=== PATIENT | male | born 1995 | race Caucasian/White ===

== ENCOUNTER 2018-11-16 19:05 | Emergency (ER) | payer OTHER ==
--- NOTE | 2018-11-16 20:34 | ED ---
Recheck HPI - General Chief Complaint: Wound/Laceration Stated Complaint: [facility]-Cut finger - History of Present Illness Initial Comments: 23-year-old male presenting for right thumb pain. Patient states using knife at work yesterday. Patient states he slightly cut his finger. Patient states he did not want to present for evaluation. Patient states it was painful today while sweaty and gloves. Patient presented for evaluation. Patient states tetanus is up-to-date within the last 5 years. Patient states he usually is on tramadol was requesting a refill while he is in the emergency department. Patient has no other complaints denies any limitation to range of motion redness swelling of the finger. Remaining review of systems negative - Related Data Home Medications Medication Instructions Recorded Confirmed Fluticasone Nasal [place] [Flonase 1 spray EA NOSTRIL DAILY 11/16/18 11/16/18 Nasal [place]] Allergies Allergy/AdvReac Type Severity Reaction Status Date / Time No Known Allergies Allergy Verified 11/16/18 20:39 Review of Systems ROS Statement: Those systems with pertinent positive or pertinent negative responses have been documented in the HPI. ROS Other: All systems not noted in ROS Statement are negative. General Exam - General Exam Comments Initial Comments: General: The patient is awake and alert, in no distress, and does not appear acutely ill. Eye: Pupils are equal, round and reactive to light, extra-ocular movements are intact. No nystagmus. There is normal conjunctiva bilaterally. No signs of icterus. Cardiovascular: There is a regular rate and rhythm. No murmur, rub or gallop is appreciated. Respiratory: Lungs are clear to auscultation, respirations are non-labored, breath sounds are equal. No wheezes, stridor, rales, or rhonchi. Musculoskeletal: Upon inspection of the right thumb there is a very superficial laceration more so abrasion at the distal aspect involving the tip of the nail no evidence of nail bed laceration. No active bleeding. No surrounding erythema. No swelling of the digits. Normal ROM, no tenderness. Strength 5/5 MTP DIP and PIP joints. Sensation intact both proximal and distal to injury site. Radial pulses equal bilaterally 2+. Neurological: A&O x 3. CN II-XII intact, There are no obvious motor or sensory deficits. Coordination appears grossly intact. Speech is normal. Skin: Skin is warm and dry and no rashes or lesions are noted. Psychiatric: Cooperative, appropriate mood & affect, normal judgment. Course Vital Signs 11/16/18 20:36 Temperature 98.1 F Pulse Rate 72 Respiratory 18 Rate Blood Pressure 113/72 O2 Sat by Pulse 99 Oximetry Medical Decision Making - Medical Decision Making 23-year-old presenting for superficial laceration. Laceration bleeding controlled. Area cleansed. Tetanus up-to-date. No evidence indicated on physical examination for suture repair. Very superficial. No concern for deeper underlying injury. Vision or vascular intact. No evidence of infection. Patient requesting refill of tramadol. At this time feel patient should receive medication refills from primary care provider. Return parameters and sent infections were discussed with patient. Patient was educated on the local topical treatment and care for superficial abrasions/lacerations. Patient verbalized understanding. Patient discharged appearing well Disposition Clinical Impression: Superficial laceration Disposition: HOME SELF-CARE Condition: Good Instructions (If sedation given, give patient instructions): Laceration (ED) Additional Instructions: Please use topical medication as discussed. Please follow-up with family doctor in the next 2 days. Please return to emergency room if the symptoms increase or worsen or for any other concerns--redness, increasing pain, drainage, abscess. Is patient prescribed a controlled substance at d/c from ED?: No Referrals: Joel Cowart MD [Primary Care Provider] - 1-2 days Time of Disposition: 20:33
[2018-11-16 20:39] VITALS: BP 113/72; PULSE 72; RESP 18; TEMP 98.1
== END 2018-11-16 20:51 | disposition home or self-care (01) ==
LOC: EC 19:05
DX: S61.011A Laceration without foreign body of right thumb without damage to nail, initial encounter (principal); F17.200 Nicotine dependence, unspecified, uncomplicated; W26.0XXA Contact with knife, initial encounter; Y92.69 Other specified industrial and construction area as the place of occurrence of the external cause; Y99.0 Civilian activity done for income or pay
CPT/HCPCS: 99282

== ENCOUNTER 2019-10-13 16:38 | Inpatient (IN) | payer MEDICAID, OTHER ==
--- NOTE | 2019-10-13 18:38 | ED ---
Psych HPI - General Chief Complaint: Psychiatric Symptoms Stated Complaint: EPS eval Time Seen by Provider: 10/13/19 17:05 Source: patient Mode of arrival: ambulatory - History of Present Illness Initial Comments: 24 year-old male patient presents to the emergency department today for psychiatric evaluation. Patient states that a little over a week ago he overdosed on his gabapentin, states he took 27 pills. States he is going to a crisis and felt like he wanted to . States that he relapsed on heroin after 3 years and broke up with his girlfriend which made him very upset. Patient states he continued to use heroin which is making him scared for his life. States he is having difficulty sleeping. He is eating and drinking. Patient denies any current suicidal ideation. States he feels well physically. He states he has had a psychiatric medications in the last 6 months. He has been diagnosed with bipolar and depression in the past. Patient denies any recent rash, fever, chills, cough, shortness of breath, chest pain, abdominal pain, nausea, vomiting, diarrhea, constipation, back pain, numbness, tingling, dizziness, weakness, hematuria, dysuria, urinary urgency, urinary frequency, headache, visual changes, or any other complaints. - Related Data Home Medications Medication Instructions Recorded Confirmed Gabapentin [Neurontin] 400 mg PO TID 10/13/19 10/13/19 Allergies Allergy/AdvReac Type Severity Reaction Status Date / Time No Known Allergies Allergy Verified 10/13/19 18:08 Review of Systems ROS Statement: Those systems with pertinent positive or pertinent negative responses have been documented in the HPI. ROS Other: All systems not noted in ROS Statement are negative. Past Medical History Additional Past Medical History / Comment(s): Hep C, pancreatitis History of Any Multi-Drug Resistant Organisms: None Reported Past Surgical History: No Surgical Hx Reported Past Psychological History: No Psychological Hx Reported, Bipolar, Depression Smoking Status: Current every day smoker Past Alcohol Use History: Rare Past Drug Use History: Marijuana, Opiates General Exam Limitations: no limitations General appearance: alert, in no apparent distress, other (This is a well- developed, well-nourished adult male patient in no acute distress. Vital signs upon presentation are temperature 98.0F, pulse 99, respirations 18, blood pressure 119/79, pulse ox 98% on room air) Eye exam: Present: normal appearance, PERRL, EOMI. Absent: scleral icterus, conjunctival injection, periorbital swelling ENT exam: Present: normal exam, normal oropharynx, mucous membranes moist Respiratory exam: Present: normal lung sounds bilaterally. Absent: respiratory distress, wheezes, rales, rhonchi, stridor Cardiovascular Exam: Present: regular rate, normal rhythm, normal heart sounds. Absent: systolic murmur, diastolic murmur, rubs, gallop, clicks GI/Abdominal exam: Present: soft, normal bowel sounds. Absent: distended, tenderness, guarding, rebound, rigid Neurological exam: Present: alert, oriented X3, CN II-XII intact Psychiatric exam: Present: normal affect, normal mood Skin exam: Present: warm, dry, intact, normal color. Absent: rash Course Vital Signs 10/13/19 10/14/19 16:42 00:15 Temperature 98 F 97.7 F Pulse Rate 99 71 Respiratory 18 18 Rate Blood Pressure 119/79 129/79 O2 Sat by Pulse 98 97 Oximetry Medical Decision Making - Medical Decision Making 24 year-old male patient presented to the emergency department today for evaluation of increased depression and increased drug use. Physical examination is unremarkable. He was cleared medically and evaluated by emergency psychiatric services. It is felt he would benefit from inpatient admission. He will be transported to the mental health unit. - Lab Data Result diagrams: 10/13/19 20:14 10/13/19 20:14 Lab Results 10/13/19 10/13/19 10/13/19 Range/Units 18:24 18:24 20:14 WBC 7.1 (3.8-10.6) k/uL RBC 4.28 L (4.30-5.90) m/uL Hgb 14.9 (13.0-17.5) gm/dL Hct 42.1 (39.0-53.0) % MCV 98.5 (80.0-100.0) fL MCH 34.7 (25.0-35.0) pg MCHC 35.3 (31.0-37.0) g/dL RDW 12.0 (11.5-15.5) % Plt Count 278 (150-450) k/uL Neutrophils % 60 % Lymphocytes % 26 % Monocytes % 9 % Eosinophils % 2 % Basophils % 0 % Neutrophils # 4.2 (1.3-7.7) k/uL Lymphocytes # 1.8 (1.0-4.8) k/uL Monocytes # 0.6 (0-1.0) k/uL Eosinophils # 0.1 (0-0.7) k/uL Basophils # 0.0 (0-0.2) k/uL Sodium (137-145) mmol/L Potassium (3.5-5.1) mmol/L Chloride (98-107) mmol/L Carbon Dioxide (22-30) mmol/L Anion Gap mmol/L BUN (9-20) mg/dL Creatinine (0.66-1.25) mg/dL Est GFR (CKD-EPI)AfAm (>60 ml/min/1.73 sqM) Est GFR (CKD-EPI)NonAf (>60 ml/min/1.73 sqM) Glucose (74-99) mg/dL Calcium (8.4-10.2) mg/dL Total Bilirubin (0.2-1.3) mg/dL AST (17-59) U/L ALT (4-49) U/L Alkaline Phosphatase (38-126) U/L Total Protein (6.3-8.2) g/dL Albumin (3.5-5.0) g/dL Urine Color Yellow Urine Appearance Clear (Clear) Urine pH 6.5 (5.0-8.0) Ur Specific [place] 1.010 (1.001-1.035) Urine Protein Negative (Negative) Urine Glucose (UA) Negative (Negative) Urine Ketones Negative (Negative) Urine Blood Negative (Negative) Urine Nitrite Negative (Negative) Urine Bilirubin Negative (Negative) Urine Urobilinogen <2.0 (<2.0) mg/dL Ur Leukocyte Esterase Negative (Negative) Urine Opiates Screen Not Detected (NotDetected) Ur Oxycodone Screen Not Detected (NotDetected) Urine Methadone Screen Not Detected (NotDetected) Ur Propoxyphene Screen Not Detected (NotDetected) Ur Barbiturates Screen Not Detected (NotDetected) U Tricyclic Antidepress Not Detected (NotDetected) Ur Phencyclidine Scrn Not Detected (NotDetected) Ur Amphetamines Screen Detected H (NotDetected) U Methamphetamines Scrn Detected H (NotDetected) U Benzodiazepines Scrn Not Detected (NotDetected) Urine Cocaine Screen Not Detected (NotDetected) U Marijuana (THC) Screen Detected H (NotDetected) 10/13/19 Range/Units 20:14 WBC (3.8-10.6) k/uL RBC (4.30-5.90) m/uL Hgb (13.0-17.5) gm/dL Hct (39.0-53.0) % MCV (80.0-100.0) fL MCH (25.0-35.0) pg MCHC (31.0-37.0) g/dL RDW (11.5-15.5) % Plt Count (150-450) k/uL Neutrophils % % Lymphocytes % % Monocytes % % Eosinophils % % Basophils % % Neutrophils # (1.3-7.7) k/uL Lymphocytes # (1.0-4.8) k/uL Monocytes # (0-1.0) k/uL Eosinophils # (0-0.7) k/uL Basophils # (0-0.2) k/uL Sodium 136 L (137-145) mmol/L Potassium 3.8 (3.5-5.1) mmol/L Chloride 99 (98-107) mmol/L Carbon Dioxide 29 (22-30) mmol/L Anion Gap 8 mmol/L BUN 13 (9-20) mg/dL Creatinine 0.63 L (0.66-1.25) mg/dL Est GFR (CKD-EPI)AfAm >90 (>60 ml/min/1.73 sqM) Est GFR (CKD-EPI)NonAf >90 (>60 ml/min/1.73 sqM) Glucose 98 (74-99) mg/dL Calcium 9.8 (8.4-10.2) mg/dL Total Bilirubin 0.6 (0.2-1.3) mg/dL AST 36 (17-59) U/L ALT 18 (4-49) U/L Alkaline Phosphatase 75 (38-126) U/L Total Protein 7.5 (6.3-8.2) g/dL Albumin 4.5 (3.5-5.0) g/dL Urine Color Urine Appearance (Clear) Urine pH (5.0-8.0) Ur Specific [place] (1.001-1.035) Urine Protein (Negative) Urine Glucose (UA) (Negative) Urine Ketones (Negative) Urine Blood (Negative) Urine Nitrite (Negative) Urine Bilirubin (Negative) Urine Urobilinogen (<2.0) mg/dL Ur Leukocyte Esterase (Negative) Urine Opiates Screen (NotDetected) Ur Oxycodone Screen (NotDetected) Urine Methadone Screen (NotDetected) Ur Propoxyphene Screen (NotDetected) Ur Barbiturates Screen (NotDetected) U Tricyclic Antidepress (NotDetected) Ur Phencyclidine Scrn (NotDetected) Ur Amphetamines Screen (NotDetected) U Methamphetamines Scrn (NotDetected) U Benzodiazepines Scrn (NotDetected) Urine Cocaine Screen (NotDetected) U Marijuana (THC) Screen (NotDetected) Disposition Clinical Impression: Depression Disposition: ADMITTED IP TO THIS [facility] Condition: Serious Decision to Admit Reason: Admit from EC Decision Date: 10/13/19 Decision Time: 22:49
[2019-10-13 18:43] LABS: Amphetamine Screen,Urine Detected (NotDetected); Barbiturate Screen,Urine Not Detected (NotDetected); Benzodiazepines Screen,Urine Not Detected (NotDetected); Cocaine Screen,Urine Not Detected (NotDetected); Methadone Screen, Urine Not Detected (NotDetected); Opiate Screen,Urine Not Detected (NotDetected); Oxycodone Screen, Urine Not Detected (NotDetected); Phencyclidine Screen,Urine Not Detected (NotDetected); Tricyclic Antidepressant,Urine Not Detected (NotDetected); Urn Cannabinoid Scrn Detected (NotDetected)
[2019-10-13 20:24] LABS: Appearance,Urine Clear (Clear); Bilirubin,Urine Negative (Negative); Blood,Urine Negative (Negative); Color,Urine Yellow; Glucose,Urine (UA) Negative (Negative); Ketones,Urine Negative (Negative); Leukocyte Esterase,Urine Negative (Negative); Nitrite,Urine Negative (Negative); PH, Urine 6.5 (5.0-8.0); Protein,Urine Negative (Negative); Urobilinogen,Urine <2.0 mg/dL (<2.0)
[2019-10-13 20:30] LABS: ALT 18 U/L (4-49); AST 36 U/L (17-59); African American GFR (CKD) >90 (>60 ml/min/1.73 sqM); Albumin 4.5 g/dL (3.5-5.0); Alkaline Phosphatase 75 U/L (38-126); Anion Gap 8 mmol/L; Blood Urea Nitrogen 13 mg/dL (9-20); Calcium 9.8 mg/dL (8.4-10.2); Carbon Dioxide 29 mmol/L (22-30); Chloride 99 mmol/L (98-107); Glucose 98 mg/dL (74-99); Non-African American GFR(CKD) >90 (>60 ml/min/1.73 sqM); Potassium 3.8 mmol/L (3.5-5.1); Sodium 136 mmol/L (137-145); Total Bilirubin 0.6 mg/dL (0.2-1.3); Total Protein 7.5 g/dL (6.3-8.2)
[2019-10-13 20:39] LABS: Basophils % (A) 0 %; Eosinophils # (A) 0.1 k/uL (0-0.7); Eosinophils % (A) 2 %; HCT 42.1 % (39.0-53.0); HGB 14.9 gm/dL (13.0-17.5); Lymphocytes # (A) 1.8 k/uL (1.0-4.8); Lymphocytes % (A) 26 %; MCH 34.7 pg (25.0-35.0); MCHC 35.3 g/dL (31.0-37.0); MCV 98.5 fL (80.0-100.0); Mean Platelet Volume 7.4; Monocytes # (A) 0.6 k/uL (0-1.0); Monocytes % (A) 9 %; Neutrophils # (A) 4.2 k/uL (1.3-7.7); Neutrophils % (A) 60 %; Platelet Count 278 k/uL (150-450); RBC 4.28 m/uL (4.30-5.90); WBC 7.1 k/uL (3.8-10.6)
[2019-10-14] MEDS ORDERED: MAG HYDROX/AL HYDROX/SIMETH 30 ML CUP PO PRN (00:07)
[2019-10-14] MEDS ORDERED: LORazepam 0.5 MG TAB PO PRN (00:07)
[2019-10-14] MEDS ORDERED: ACETAMINOPHEN TAB 325 MG TAB PO PRN (00:07)
[2019-10-14] MEDS ORDERED: MAGNESIUM HYDROXIDE 2,400 MG/10 ML CUP PO PRN (00:07)
[2019-10-14] MEDS ORDERED: NICOTINE POLACRILEX 2 MG GUM BUCCAL PRN (03:16)
[2019-10-14 09:28] LABS: Albumin 4.5 g/dL (3.5-5.0); Bilirubin,Unconjugated 0.7 mg/dL (0.0-1.1); Total Bilirubin 0.7 mg/dL (0.2-1.3); Total Protein 7.5 g/dL (6.3-8.2)
[2019-10-14] MEDS: GABAPENTIN 400 MG CAP PO SCH ×3 (09:56→20:57)
[2019-10-14] MEDS ORDERED: ZIPRASIDONE 20 MG VIAL IM PRN (10:39)
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
[2019-10-14] MEDS: lamoTRIgine 25 MG TAB PO SCH ×2 (12:23→20:57)
[2019-10-14 18:54] LABS: Hemoglobin A1C 5.4 % (4.0-6.0)
[2019-10-14] MEDS ORDERED: QUEtiapine 50 MG TAB PO SCH (21:00)
--- NOTE | 2019-10-15 04:21 | P.CONS ---
History of Present Illness - Reason for Consult Consult date: 10/15/19 - History of Present Illness 24-year-old male with a PMH of hepatitis C and history of pancreatitis and presented to the ED with complaints of depression and suicidal ideation. The patient was admitted to the mental health unit where he was seen and evaluated. The patient reported feeling somewhat better since admission, though reported continued feelings of depression due to his ongoing substance abuse issues. The patient otherwise denied chest pain, shortness of fever, chills, nausea, vomiting, or abdominal pain. Review of Systems Pertinent positives and negatives as discussed in HPI, a complete review of systems was performed and all other systems are negative. Past Medical History Additional Past Medical History / Comment(s): Hep C, pancreatitis History of Any Multi-Drug Resistant Organisms: None Reported Past Surgical History: No Surgical Hx Reported Past Psychological History: No Psychological Hx Reported, Bipolar, Depression Smoking Status: Current every day smoker Past Alcohol Use History: Rare Past Drug Use History: Marijuana, Opiates Medications and Allergies Home Medications Medication Instructions Recorded Confirmed Type Gabapentin [Neurontin] 400 mg PO TID 10/13/19 10/13/19 History Allergies Allergy/AdvReac Type Severity Reaction Status Date / Time No Known Allergies Allergy Verified 10/13/19 18:08 Physical Exam Vitals: Vital Signs Temp Pulse Pulse Resp BP BP Pulse Ox 10/14/19 20:59 101 H 112/72 10/14/19 17:29 97.1 F L 10/14/19 14:26 99.1 F 10/14/19 06:46 98.8 F 62 16 131/59 98 General: non toxic, no distress, appears at stated age, normal weight Derm: no unusual rashes/lesions no unusual ecchymoses, warm, dry Head: atraumatic, normocephalic, symmetric Eyes: EOMI, no lid lag, anicteric sclera, pupils equal round reactive to light ENT: Nose and ears atraumatic, no thrush, no pharyngeal erythema Neck: No thyromegaly, no cervical lymphadenopathy, trachea midline, supple Mouth: no lip lesion, mucus membranes moist Cardiovascular: S1S2 reg, no murmur, positive posterior tibial pulse bilateral, no edema, capillary refill less than 2 seconds Lungs: CTA bilateral, no rhonchi, no rales , no accessory muscle use Abdominal: soft, nontender to palpation, no guarding, no appreciable organomegaly, normal bowel sounds Ext: no gross muscle atrophy, muscle strength 5 out of 5 in all 4 extremities grossly, no contractures, Neuro: CN II-XI grossly intact, light touch intact all 4 extremities, finger to nose within normal limits, Psych: Alert, oriented, appropriate affect Results CBC & Chem 7: 10/13/19 20:14 10/13/19 20:14 Labs: Abnormal Lab Results - Last 24 Hours (Table) 10/14/19 Range/Units 08:40 TSH 0.125 L (0.465-4.680) mIU/L Assessment and Plan Plan: Low TSH -Follow-up free T4 Tobacco abuse -Nicotine patch History of hepatitis C -Patient will need outpatient GI follow-up next Polysubstance abuse -Monitor for signs of withdrawal Depression and suicidal ideation -As per psych
--- NOTE | 2019-10-15 10:21 | P.PN ---
Progress Note - Text Progress Note Date: 10/15/19 Interval History: Patient was seen laying down in his bed this morning and was directable and ag reeable to speak with policy writer sales in the office. Patient was initially hesitant to get out of bed. He states that he feels anxious and continues to feel depressed. He states that he is still going through withdrawals from the substance abuse. He states that "I'm not eating" and states that he does not like eating in a dining garcia with other people as he claims that it is due to his anxiety and PTSD. He states that he slept about "half the night". He claims that he is not going to any groups at this time and has not been very visible on the unit and states that "I'm just not a social person". At this time patient denies any suicidal or homical ideations, intent or plan. Patient denies any auditory, visual hallucinations and denies any paranoia or delusions. Patient denies any side effects from the medications and has been compliant with meds. Mental Status Exam: General Appearance: Patient appears to be stated age is tall, thin alert, directable, and argumentative at times. Patient appears to have poor hygiene and grooming Behavior: Patient is seated without any agitated behavior. Commended at times. Speech: Patient's speech is fluent and nonpressured. Mood/Affect: Patient reports their mood is "terrible", affect is congruent and constricted. Some irritability. Suicidality/Homicidality: Patient denies having any homicidal ideation intent or plan. Denies any suicidal ideations intent or plan Perceptions: Patient denies any visual hallucinations and denies any auditory hallucinations Though content/process: There is no evidence of any delusional thought content and thought process is linear and goal-directed. Depressive thoughts. Memory and concentration: AOX3, grossly intact for the purposes of this session Judgment and insight: poor Assessment Bipolar disorder, currently depressed rule out substance-induced depressive disorder History of PTSD. Opiate abuse Methamphetamine abuse Cannabis use disorder Nicotine dependence Plan: -Patient continues to meet criteria for inpatient psychiatric admission for symptom stabilization and safety. Patient has signed adult voluntary form and medication consent and was placed in patient's chart. -Medications: Will increase Lamictal to 50 mg twice a day for mood stabilization/depression. Increased Seroquel to 75 mg nightly for mood stabilization/insomnia. -When necessary Ativan and Geodon for agitation/aggression. -NRT -nicotine gum -SW on board for discharge planning. Encouraged the patient to participate in milieu. Patient stated that he does not want to go to rehab at this time. Likely discharge in 2-3 days.
[2019-10-15] MEDS: GABAPENTIN 400 MG CAP PO SCH ×3 (10:26→20:21)
[2019-10-15] MEDS: lamoTRIgine 25 MG TAB PO SCH (10:27)
[2019-10-15] MEDS ORDERED: lamoTRIgine 25 MG TAB PO SCH (21:00)
[2019-10-15] MEDS ORDERED: QUEtiapine 25 MG TAB PO SCH (21:00)
[2019-10-16 05:30] VITALS: RESP 18
[2019-10-16] MEDS: busPIRone HCl 10 MG TAB PO SCH (08:41)
[2019-10-16] MEDS: GABAPENTIN 400 MG CAP PO SCH ×3 (08:41→20:06)
--- NOTE | 2019-10-16 08:42 | P.PN ---
Progress Note - Text Progress Note Date: 10/16/19 Interval History: Patient was seen laying down in his bed this morning and was directable and ag reeable to speak with flex o writer operator in the office. Patient appeared to be more cooperative today with brighter and more appropriate. He states that his mood has been gradually improving and he feels less depressed today. He states that he continues to struggle with anxiety however did state that he was able to go into the dining garcia earlier this morning and have "a few bites of breakfast" before he left due to anxiety. He states that he refused the Lamictal yesterday as he states that it was "making me feel more anxious" however does state that the Seroquel is helping him. He states that he only slept 3-4 hours last night and was requesting to have his Seroquel increased to 150 mg for tonight. He did claim that he will try to go to groups today as he is feeling too anxious yesterday. At this time patient denies any suicidal or homical ideations, intent or plan. Patient denies any auditory, visual hallucinations and denies any paranoia or delusions. Patient has been compliant with meds. Mental Status Exam: General Appearance: Patient appears to be stated age is tall, thin alert, directable, and more cooperative today. Patient appears to have improved hygiene and grooming Behavior: Patient is seated without any agitated behavior. Attempts to cooperate today. Speech: Patient's speech is fluent and nonpressured. Mood/Affect: Patient reports their mood is "a bit better", affect is congruent and constricted. Anxious. Suicidality/Homicidality: Patient denies having any homicidal ideation intent or plan. Denies any suicidal ideations intent or plan Perceptions: Patient denies any visual hallucinations and denies any auditory hallucinations Though content/process: There is no evidence of any delusional thought content and thought process is linear and goal-directed. More future oriented. Memory and concentration: AOX3, grossly intact for the purposes of this session Judgment and insight: poor, only improving. Assessment Bipolar disorder, currently depressed rule out substance-induced depressive disorder History of PTSD. Opiate abuse Methamphetamine abuse Cannabis use disorder Nicotine dependence Plan: -Patient continues to meet criteria for inpatient psychiatric admission for symptom stabilization and safety. Patient has signed adult voluntary form and medication consent and was placed in patient's chart. -Medications: Will discontinue Lamictal at this time as it may have been causing patient to be more anxious. Increased Seroquel to 150 mg nightly for mood stabilization/insomnia. We will add BuSpar 10 mg at 9 AM +10 mg at 2 PM for anxiety. -When necessary Ativan and Geodon for agitation/aggression. -NRT -nicotine gum -SW on board for discharge planning. Encouraged the patient to participate in milieu. Patient stated that he is continuing to consider rehab. Likely discharge in 1-2 days.
[2019-10-16] MEDS ORDERED: busPIRone HCl 10 MG TAB PO SCH (14:00)
[2019-10-16 20:09] VITALS: BP 115/74; PULSE 88
[2019-10-16] MEDS ORDERED: QUEtiapine 50 MG TAB PO SCH (21:00)
[2019-10-17] MEDS: busPIRone HCl 10 MG TAB PO SCH (07:53)
[2019-10-17] MEDS: GABAPENTIN 400 MG CAP PO SCH (07:53)
--- NOTE | 2019-10-17 09:37 | P.DS ---
Providers Date of admission: 10/14/19 00:02 Expected date of discharge: 10/17/19 Attending physician: Cas Goyal MD Primary care physician: Keven Reddy - Discharge Diagnosis(es) (1) Bipolar disorder current episode depressed Current Visit: Yes Status: Acute Priority: High (2) History of posttraumatic stress disorder (PTSD) Current Visit: Yes Status: Acute Priority: Medium (3) Opiate abuse, episodic Current Visit: Yes Status: Acute Priority: Medium (4) Methamphetamine abuse Current Visit: Yes Status: Acute Priority: Medium (5) Cannabis use disorder, mild, abuse Current Visit: Yes Status: Acute Priority: Medium (6) Nicotine dependence Current Visit: Yes Status: Acute Priority: Low Hospital Course: Admission HPI: Patient is a 24 year old male currently lives with his mother has no kids is single and unemployed. Patient presented to the hospital yesterday for psychiatric evaluation and claimed that he overdosed on Neurontin approximately 1 week ago on 27 pills as per ER report patient also explained in the ER that he was feeling suicidal and relapse on heroin after being sober for 3 years and having argument with his girlfriend. Patient's UDS is positive for methamphetamine and marijuana. Patient was admitted to the mental health unit and evaluated this morning by sports book writer. Patient was initially guarded and evasive and spoke generally about having "drug use problems and mental health issues" as for the reason why he is in the hospital. He states that he also has bipolar and "sleep problems". He did describe a vague history of what appeared to be a manic episode where he would have lots of energy and did not need any sleep and was not using drugs at that time. He describes his mood currently as "horrible" and described no triggers or stressors in his life recently. He states that he relapsed back on heroin and fentanyl approximately 2 weeks ago and has been using attendance of a gram every day. He denies any methamphetamine use but does claim that he uses marijuana daily for anxiety sleep and appetite. He states that the reason why he relapsed on drugs was that he "seen someone at the [employer] who was selling drugs and claims that "I had a bad day that day and wanted a stress relief". He claims that he's been off his psychiatric medications including Prozac and Zyprexa as he claims it has not helped him for the past 3 months. He admitted to a overdose on Neurontin 1 week ago consuming 27 pills however did not go to the hospital. He states that his sleep is "all right".Patient denies any suicidal or homicidal ideations intent or plan. At this time patient denies any auditory or visual hallucinations. Patient denies any flight of ideas racing thoughts and increased in goal directed behavior. Patient admits to using cigarettes daily denies any alcohol use and recreational drugs as listed above. Hospital course: Upon admission to the unit patient was initially depressed and anxious and having suicidal thoughts. Patient was however directable and agreeable to commence treatment. Patient got along well with other patients on the unit and followed unit protocol. Patient was compliant with the medications throughout hospital course. Patient was started on Lamictal initially however patient reported significant increase in his anxiety and it was discontinued. Patient was started on Seroquel and titrated up to a dose of 150 mg nightly for mood stabilization/insomnia. Patient was also started on BuSpar 10 mg every 9 AM +10 mg every 2 p.m. for anxiety.. Patient spoke of his stressors and engaged in individual therapy however did not attend many groups. Patient for the most part was minimally visible on the unit and mainly isolative in his room and stated that that is how he usually is and usually avoids people. Patient was also seen by medical team for history and physical exam. Throughout the course of the hospitalization patient gradually improved with regards to mood, anxiety, sleep and became future oriented with improved insight and judgment. On the day of discharge patient denied any suicidal or homicidal ideations intent or plan denied any auditory or visual hallucinations. Patient endorsed wanting to live for his future and his family. The patient denied any access to guns or weapons. Patient denied any paranoia and did not endorse any delusions. Patient does have a significant history of substance abuse and was counseled on abstaining from all substances including alcohol and marijuana. Patient was offered however declined inpatient substance-abuse rehab and instead patient claims that he would like to go to [facility] for outpatient substance use treatment. Patient was also counseled on the medications and need for regular compliance and was encouraged to follow-up with their outpatient appointment for mental health and also for primary care. Prior to discharge a family meeting will be arranged by older adult social work specialist to answer any questions and ensure safety upon discharge. Mental status exam: General Appearance: Patient appears to be tall/thin, stated age is alert, pleasant, and cooperative. Patient is in no acute distress and has fair hygiene and grooming Behavior: Patient is calmly seated without any agitated behavior. Cooperative. Speech: Patient's speech is fluent and nonpressured. Mood/Affect: Patient reports their mood is "much better", affect is congruent and euthymic. Suicidality/Homicidality: Patient denies having any suicidal or homicidal ideation intent or plan. Perceptions: Patient denies any auditory or visual hallucinations. Though content/process: There is no evidence of any delusional thought content and thought process is linear and goal-directed. more future oriented Memory and concentration: AOX3, grossly intact for the purposes of this session. Can spell "WORLD" backwards correctly. Judgment and insight: Improved with guarded prognosis Impression: Bipolar disorder, currently depressed rule out substance-induced mood disorder. History of PTSD Opiate abuse Methamphetamine abuse Cannabis use disorder Nicotine dependence Plan: -Continue with discharge today as patient has improved and stabilized psychiatrically and is not currently an imminent threat to himself and/or others. -Continue medications: Seroquel 150 mg nightly for mood stabilization/insomnia, BuSpar 10 mg every 9 AM +10 mg every 2 PM for anxiety. -Patient was counseled on the need for medication compliance and appropriate follow-up at mental health and also primary care for medical issues. Patient verbalized understanding and agreed. -Social work to arrange for and conduct family meeting to ensure safety upon discharge and answer any questions/concerns. Social work also to arrange for patients follow up appointments with [facility] for psychiatric care along with follow up with primary care provider. Patient will also be going to [facility] for outpatient substance abuse treatment. -Patient counseled on abstaining from recreational drugs and marijuana and alcohol. Was informed/educated on the adverse effects on their physical and mental health. Patient verbally agreed and understood. Patient was offered substance abuse treatment however declined at this time. -Patient was instructed to return to the hospital or seek immediate medical care if their psychiatric or medical symptoms do worsen or reoccur. Allergies Allergy/AdvReac Type Severity Reaction Status Date / Time No Known Allergies Allergy Verified 10/13/19 18:08 Laboratory Results WBC 7.1 k/uL (3.8-10.6) 10/13/19 20:14 RBC 4.28 m/uL (4.30-5.90) L 10/13/19 20:14 Hgb 14.9 gm/dL (13.0-17.5) 10/13/19 20:14 Hct 42.1 % (39.0-53.0) 10/13/19 20:14 MCV 98.5 fL (80.0-100.0) 10/13/19 20:14 MCH 34.7 pg (25.0-35.0) 10/13/19 20:14 MCHC 35.3 g/dL (31.0-37.0) 10/13/19 20:14 RDW 12.0 % (11.5-15.5) 10/13/19 20:14 Plt Count 278 k/uL (150-450) 10/13/19 20:14 Neutrophils % 60 % 10/13/19 20:14 Lymphocytes % 26 % 10/13/19 20:14 Monocytes % 9 % 10/13/19 20:14 Eosinophils % 2 % 10/13/19 20:14 Basophils % 0 % 10/13/19 20:14 Neutrophils # 4.2 k/uL (1.3-7.7) 10/13/19 20:14 Lymphocytes # 1.8 k/uL (1.0-4.8) 10/13/19 20:14 Monocytes # 0.6 k/uL (0-1.0) 10/13/19 20:14 Eosinophils # 0.1 k/uL (0-0.7) 10/13/19 20:14 Basophils # 0.0 k/uL (0-0.2) 10/13/19 20:14 Sodium 136 mmol/L (137-145) L 10/13/19 20:14 Potassium 3.8 mmol/L (3.5-5.1) 10/13/19 20:14 Chloride 99 mmol/L (98-107) 10/13/19 20:14 Carbon Dioxide 29 mmol/L (22-30) 10/13/19 20:14 Anion Gap 8 mmol/L 10/13/19 20:14 BUN 13 mg/dL (9-20) 10/13/19 20:14 Creatinine 0.63 mg/dL (0.66-1.25) L 10/13/19 20:14 Est GFR (CKD-EPI)AfAm >90 (>60 ml/min/1.73 sqM) 10/13/19 20:14 Est GFR (CKD-EPI)NonAf >90 (>60 ml/min/1.73 sqM) 10/13/19 20:14 Glucose 98 mg/dL (74-99) 10/13/19 20:[address] Glu mg/dL 108 10/14/19 08:40 Hemoglobin A1c 5.4 % (4.0-6.0) 10/14/19 08:40 Calcium 9.8 mg/dL (8.4-10.2) 10/13/19 20:14 Total Bilirubin 0.7 mg/dL (0.2-1.3) 10/14/19 08:40 Conjugated Bilirubin 0.0 mg/dL (0.0-0.3) 10/14/19 08:40 Unconjugated Bilirubin 0.7 mg/dL (0.0-1.1) 10/14/19 08:40 Delta Bilirubin 0.0 mg/dL (0.0-0.2) 10/14/19 08:40 AST 33 U/L (17-59) 10/14/19 08:40 ALT 18 U/L (4-49) 10/14/19 08:40 Alkaline Phosphatase 78 U/L (38-126) 10/14/19 08:40 Total Protein 7.5 g/dL (6.3-8.2) 10/14/19 08:40 Albumin 4.5 g/dL (3.5-5.0) 10/14/19 08:40 Triglycerides 62 mg/dL (<150) 10/14/19 08:40 Cholesterol 121 mg/dL (<200) 10/14/19 08:40 LDL Cholesterol, Calc 49 mg/dL (0-99) 10/14/19 08:40 HDL Cholesterol 60 mg/dL (40-60) 10/14/19 08:40 TSH 0.125 mIU/L (0.465-4.680) L 10/14/19 08:40 Urine Color Yellow 10/13/19 18:24 Urine Appearance Clear (Clear) 10/13/19 18:24 Urine pH 6.5 (5.0-8.0) 10/13/19 18:24 Ur Specific [place] 1.010 (1.001-1.035) 10/13/19 18:24 Urine Protein Negative (Negative) 10/13/19 18:24 Urine Glucose (UA) Negative (Negative) 10/13/19 18:24 Urine Ketones Negative (Negative) 10/13/19 18:24 Urine Blood Negative (Negative) 10/13/19 18:24 Urine Nitrite Negative (Negative) 10/13/19 18:24 Urine Bilirubin Negative (Negative) 10/13/19 18:24 Urine Urobilinogen <2.0 mg/dL (<2.0) 10/13/19 18:24 Ur Leukocyte Esterase Negative (Negative) 10/13/19 18:24 Urine Opiates Screen Not Detected (NotDetected) 10/13/19 18:24 Ur Oxycodone Screen Not Detected (NotDetected) 10/13/19 18:24 Urine Methadone Screen Not Detected (NotDetected) 10/13/19 18:24 Ur Propoxyphene Screen Not Detected (NotDetected) 10/13/19 18:24 Ur Barbiturates Screen Not Detected (NotDetected) 10/13/19 18:24 U Tricyclic Antidepress Not Detected (NotDetected) 10/13/19 18:24 Ur Phencyclidine Scrn Not Detected (NotDetected) 10/13/19 18:24 Ur Amphetamines Screen Detected (NotDetected) H 10/13/19 18:24 U Methamphetamines Scrn Detected (NotDetected) H 10/13/19 18:24 U Benzodiazepines Scrn Not Detected (NotDetected) 10/13/19 18:24 Urine Cocaine Screen Not Detected (NotDetected) 10/13/19 18:24 U Marijuana (THC) Screen Detected (NotDetected) H 10/13/19 18:24 Vital Signs Temp 99.0 F 10/16/19 20:08 Pulse 88 10/16/19 20:08 Resp 18 10/16/19 20:08 BP 115/74 10/16/19 20:08 Pulse Ox 96 10/16/19 20:08 Patient Condition at Discharge: Stable Plan - Discharge Summary New Discharge Prescriptions: New busPIRone HCl [Buspar] 10 mg PO 1400 30 Days tab busPIRone HCl [Buspar] 10 mg PO 0900 30 Days tab Gabapentin [Neurontin] 400 mg PO TID 10 Days cap Nicotine Polacrilex [Nicorette] 2 mg BUCCAL Q4HR PRN 14 Days gum PRN Reason: Nicotine Cravings QUEtiapine [SEROquel] 150 mg PO HS 30 Days tablet Acetaminophen Tab [Tylenol] 650 mg PO Q4HR PRN tab PRN Reason: Pain/Discomfort Discontinued Gabapentin [Neurontin] 400 mg PO TID Discharge Medication List Acetaminophen Tab [Tylenol] 650 mg PO Q4HR PRN tab 10/17/19 [Rx] Gabapentin [Neurontin] 400 mg PO TID 10 Days cap 10/17/19 [Rx] Nicotine Polacrilex [Nicorette] 2 mg BUCCAL Q4HR PRN 14 Days gum 10/17/19 [Rx] QUEtiapine [SEROquel] 150 mg PO HS 30 Days tablet 10/17/19 [Rx] busPIRone HCl [Buspar] 10 mg PO 0900 30 Days tab 10/17/19 [Rx] busPIRone HCl [Buspar] 10 mg PO 1400 30 Days tab 10/17/19 [Rx] Follow up Appointment(s)/Referral(s): [facility] [Outside] - 10/20/19 10:00 am (10-20-19 @ 10:[address] at [facility] office via [employer] video 10-24-19 @ 11:00 with Nelida Hickey by phone.) Keven Reddy MD [Primary Care Provider] - 1-2 days Activity/Diet/Wound Care/Special Instructions: Activity and diet as tolerated. Avoid the use of street drugs and alcohol. Take all medications as prescribed. When you are in need of refills on your medications please contact your medical provider and/or outpatient psychiatrist to have this done. Please go to scheduled outpatient appointment for aftercare treatment. If symptoms return or become worse, call the crisis line at and/or go to the nearest emergency room for evaluation. Discharge Disposition: HOME SELF-CARE
[2019-10-17 13:22] VITALS: TEMP 97.4
== END 2019-10-17 12:53 | disposition home or self-care (01) | DRG 885 ==
LOC: EC 16:38 → 3MHU 10-14 00:02
PROVIDERS: ADMIT Psychiatry & Neurology Psychiatry; ATTEND Psychiatry & Neurology Psychiatry
DX: F31.30 Bipolar disorder, current episode depressed, mild or moderate severity, unspecified (principal); R45.851 Suicidal ideations; F43.10 Post-traumatic stress disorder, unspecified; F17.210 Nicotine dependence, cigarettes, uncomplicated; F15.10 Other stimulant abuse, uncomplicated; F12.10 Cannabis abuse, uncomplicated; F11.10 Opioid abuse, uncomplicated; G47.00 Insomnia, unspecified; Z91.5 Personal history of self-harm; Z79.899 Other long term (current) drug therapy; Z56.0 Unemployment, unspecified
CPT/HCPCS: 36415; 80053; 80061; 80076; 80306; 81003; 82075; 83036; 84443; 85025; 99284

== ENCOUNTER 2019-11-10 09:01 | Emergency (ER) | payer OTHER ==
[2019-11-10] MEDS ORDERED: ONDANSETRON ODT 4 MG TAB PO STA (09:09)
[2019-11-10 09:10] VITALS: BP 124/75; PULSE 125; RESP 16; TEMP 97.8
--- NOTE | 2019-11-10 09:21 | ED ---
General Adult HPI - General Chief complaint: Overdose Stated complaint: Overdose Time Seen by Provider: 11/10/19 09:01 Source: patient, EMS, RN notes reviewed, old records reviewed Mode of arrival: EMS Limitations: no limitations - History of Present Illness Initial comments: This is a 24-year-old male who presents emergency Department stating he is a h eroin user. He stated he snorted heroin today and apparently overdosed. He was found unresponsive and gave him one dose of Narcan he came around and is alert and oriented 3. Patient's only complaint currently is that he is nauseous. Patient states he never will never used heroin again but he also admits that he has had this multiple times in the past. Patient denies any chest pain difficulty breathing shortness of breath per patient denies any cough. Patient denies any abdominal pain patient has vomited times one - Related Data Home Medications Medication Instructions Recorded Confirmed Gabapentin [Neurontin] 400 mg PO TID PRN 11/10/19 11/10/19 busPIRone HCl [Buspar] 10 mg PO BID 11/10/19 11/10/19 Previous Rx's Medication Instructions Recorded QUEtiapine [SEROquel] 150 mg PO HS 30 Days tablet 10/17/19 Allergies Allergy/AdvReac Type Severity Reaction Status Date / Time No Known Allergies Allergy Verified 10/13/19 18:08 Review of Systems ROS Statement: Those systems with pertinent positive or pertinent negative responses have been documented in the HPI. ROS Other: All systems not noted in ROS Statement are negative. Past Medical History Additional Past Medical History / Comment(s): Hep C, pancreatitis History of Any Multi-Drug Resistant Organisms: None Reported Past Surgical History: No Surgical Hx Reported Past Psychological History: No Psychological Hx Reported, Bipolar, Depression Smoking Status: Current every day smoker Past Alcohol Use History: Occasional Past Drug Use History: Heroin, Marijuana, Opiates General Exam - General Exam Comments Initial Comments: GENERAL: Patient is well-developed and well-nourished. Patient is nontoxic and well- hydrated and is in mild distress. ENT: Neck is soft and supple. No significant lymphadenopathy is noted. Oropharynx is clear. Moist mucous membranes. Neck has full range of motion without eliciting any pain. EYES: The sclera were anicteric and conjunctiva were pink and moist. Extraocular movements were intact and pupils were equal round and reactive to light. Eyelids were unremarkable. PULMONARY: Unlabored respirations. Good breath sounds bilaterally. No audible rales rhonchi or wheezing was noted. CARDIOVASCULAR: There is a regular rate and rhythm without any murmurs gallops or rubs. ABDOMEN: Soft and nontender with normal bowel sounds. SKIN: Skin is clear with no lesions or rashes and otherwise unremarkable. NEUROLOGIC: Patient is alert and oriented x3. Cranial nerves II through XII are grossly intact. Motor and sensory are also intact. Normal speech, volume and content. Symmetrical smile. MUSCULOSKELETAL: Normal extremities with adequate strength and full range of motion. LYMPHATICS: No significant lymphadenopathy is noted PSYCHIATRIC: Normal psychiatric evaluation. Limitations: no limitations Course Vital Signs 11/10/19 09:04 Temperature 97.8 F Pulse Rate 125 H Respiratory 16 Rate Blood Pressure 124/75 O2 Sat by Pulse 98 Oximetry Medical Decision Making - Medical Decision Making Patient had Zofran and was feeling better. Patient was able to ambulate on emergency department without problem. Patient was requesting to go home. Disposition Clinical Impression: Heroin overdose Disposition: HOME SELF-CARE Condition: Good Instructions (If sedation given, give patient instructions): Opioid Use Disorder (ED) Is patient prescribed a controlled substance at d/c from ED?: No Referrals: [facility] [Primary Care Provider] - 1-2 days Time of Disposition: 09:56
== END 2019-11-10 10:12 | disposition home or self-care (01) ==
LOC: EC 09:01
DX: T40.1X1A Poisoning by heroin, accidental (unintentional), initial encounter (principal); F17.200 Nicotine dependence, unspecified, uncomplicated; Z86.19 Personal history of other infectious and parasitic diseases
CPT/HCPCS: 99284